=== PATIENT | female | born 1935 | race Caucasian/White ===

== ENCOUNTER → 2017-04-07 | Outpatient (CLI) | payer MEDICARE, MEDICAID ==
--- NOTE | 2017-04-07 13:06 | RADIOLOGY REPORT (SQ) ---
EXAM DESCRIPTION: RIBS LEFT W/PA CHEST COMPLETED DATE/TIME: 04/07/2017 12:36 pm REASON FOR STUDY: RIB PAIN ON LEFT SIDE R07.81 PLEURODYNIA M54.5 LOW BACK PAIN COMPARISON: Two-view chest 12/04/2010 Lumbar spine films same date TECHNIQUE: Frontal view of the chest and additional views of the left ribs acquired. NUMBER OF VIEWS: PA chest Left rib detail films two views LIMITATIONS: None. FINDINGS: FRONTAL CXR: Distorted by the patient's thoracic kyphosis. There is a large retrocardiac hiatal hernia containing the majority of the stomach. This has an air-fluid level. Lungs are grossly clear. No pleural effusions. No pneumothorax. Mild cardiomegaly. RIBS: Osteoporotic. There is buckling of the 5th 6th and 7th left lateral ribs worrisome for acute o r subacute fractures. OTHER: No other significant finding. IMPRESSION: No acute infiltrates. Large retrocardiac hiatal hernia containing the majority of the stomach. Air-fluid level is present in the stomach. Buckling of the bony cortex left lateral 5th 6th and 7th ribs worrisome for acute or subacute fractur es COMMENT: SITE OF TRAUMA/COMPLAINT MARKED/STAMP COMPLETED: No TECHNICAL DOCUMENTATION: JOB ID: [id number] [employer]- All Rights Reserved
--- NOTE | 2017-04-07 13:10 | RADIOLOGY REPORT (SQ) ---
EXAM DESCRIPTION: L SPINE 2 VIEWS COMPLETED DATE/TIME: 04/07/2017 12:36 pm REASON FOR STUDY: LUMBAGO R07.81 PLEURODYNIA M54.5 LOW BACK PAIN COMPARISON: Chest films 12/04/2010 Lumbar spine films 12/03/2013 NUMBER OF VIEWS: Two views. TECHNIQUE: AP and lateral radiographic images acquired of the lumbar spine. LIMITATIONS: Bones are osteoporotic. Thoracic kyphosis. Limited visualization of the lumbar spine on the frontal film FINDINGS: MINERALIZATION: Osteoporotic SEGMENTATION: Normal. No transitional anatomy. ALIGNMENT: Very accentuated thoracolumbar kyphosis, almost 90 VERTEBRAE: Multiple biconcave compression deformities with 25 to 50% loss of height at T7, T8, T9 and T10. 50% loss of height at T11, 75% loss of height at T12. Vertebra plana at L1. The lower thoracic compression deformities appear new compared to prior films from 12/03/2013 and 011. Mid L1 vertebra plana deformity is stable compared to 12/03/2013. DISCS: Preserved height. No significant osteophytes or end plate irregularity. POSTERIOR ELEMENTS: Not well seen HARDWARE: None in the spine. PARASPINAL SOFT TISSUES: Normal. PELVIS: Not well seen OTHER: No other significant finding. IMPRESSION: Multiple lower thoracic compression deformities with thoracolumbar kyphosis Stable L1 vertebra plana deformity compared 12/03/2013 TECHNICAL DOCUMENTATION: JOB ID: [id number] [employer]- All Rights Reserved
== END ==
LOC: RAD 12:03
PROVIDERS: ATTEND Physician Assistant
DX: R07.81 Pleurodynia (principal); M54.5 Low back pain
CPT/HCPCS: 72100

== ENCOUNTER 2017-06-04 08:34 | Day surgery (SDC) | payer MEDICARE, MEDICAID ==
[~2017-06-04 08:34] MED LIST: CHONDR SU A NA/HYALUR INTRAOC KIT (SURGICARE) ONE; EPINEPHRINE INJ/PF 1 MG/1 ML AMPULE ONE; KETOROLAC TROMETHAMINE 0.45% 4 DROP/0.4 ML DROPERETTE OS PRN; LIDOCAINE 1% INJ-PF (10 MG/ML) 30 ML SDV ONE; TOBRAMYCIN SULFATE/DEXAMETH OPH OINTMENT 3.5 GM ONE
[2017-06-04] MEDS: CYCLOPENTOLATE 0.2%/PHENYLEPHRINE 1% OPH SOLN 2 ML OS PRN ×3 (09:15→09:45)
[2017-06-04] MEDS: TETRACAINE HCL 0.5% OPH SOLN 0.6 ML DROPERETTE OS PRN ×3 (09:15→09:56)
[2017-06-04] MEDS: TROPICAMIDE 1% OPH SOLN 3 ML OS PRN ×3 (09:16→09:45)
[2017-06-04] MEDS: BESIFLOXACIN HCL 0.6% OPH SUSP 5 ML BOTTLE OS PRN ×3 (09:17→10:33)
[2017-06-04] MEDS ORDERED: MIDAZOLAM 2 MG/2 ML INJ ONE ×2 (09:44)
== END 2017-06-04 11:15 | disposition home or self-care (01) ==
LOC: SC 08:34
PROVIDERS: ATTEND Ophthalmology
PROC: 08RK3JZ Replacement of Left Lens with Synthetic Substitute, Percutaneous Approach (ICD-10-PCS; principal; 2017-06-04 09:45)
DX: H25.12 Age-related nuclear cataract, left eye (principal); I10 Essential (primary) hypertension
CPT/HCPCS: 66984; V2630; J2250; J3490 ×3; A9270; J0171; 142

== ENCOUNTER 2017-06-18 09:31 | Day surgery (SDC) | payer MEDICARE, MEDICAID ==
[~2017-06-18 09:31] MED LIST changes: -CHONDR SU A NA/HYALUR INTRAOC KIT (SURGICARE) ONE; -EPINEPHRINE INJ/PF 1 MG/1 ML AMPULE ONE; +KETOROLAC TROMETHAMINE 0.45% 4 DROP/0.4 ML DROPERETTE OD PRN; -KETOROLAC TROMETHAMINE 0.45% 4 DROP/0.4 ML DROPERETTE OS PRN; -LIDOCAINE 1% INJ-PF (10 MG/ML) 30 ML SDV ONE; +MIDAZOLAM 2 MG/2 ML INJ ONE; -TOBRAMYCIN SULFATE/DEXAMETH OPH OINTMENT 3.5 GM ONE
[2017-06-18] MEDS ORDERED: EPINEPHRINE INJ/PF 1 MG/1 ML AMPULE ONE (09:39)
[2017-06-18] MEDS ORDERED: LIDOCAINE 1% INJ-PF (10 MG/ML) 30 ML SDV ONE (09:40)
[2017-06-18] MEDS ORDERED: CHONDR SU A NA/HYALUR INTRAOC KIT (SURGICARE) ONE (09:40)
[2017-06-18] MEDS: TETRACAINE HCL 0.5% OPH SOLN 0.6 ML DROPERETTE OD PRN ×3 (10:31→11:02)
[2017-06-18] MEDS: TROPICAMIDE 1% OPH SOLN 3 ML OD PRN ×3 (10:32→10:52)
[2017-06-18] MEDS: CYCLOPENTOLATE 0.2%/PHENYLEPHRINE 1% OPH SOLN 2 ML OD PRN ×3 (10:32→10:52)
[2017-06-18] MEDS: BESIFLOXACIN HCL 0.6% OPH SUSP 5 ML BOTTLE OD PRN ×4 (10:33→11:24)
[2017-06-18] MEDS: TOBRAMYCIN SULFATE/DEXAMETH OPH OINTMENT 3.5 GM ONE ×2 (11:22→11:24)
== END 2017-06-18 12:12 | disposition home or self-care (01) ==
LOC: SC 09:31
PROVIDERS: ATTEND Ophthalmology
PROC: 08RJ3JZ Replacement of Right Lens with Synthetic Substitute, Percutaneous Approach (ICD-10-PCS; principal; 2017-06-18 10:45)
DX: H25.11 Age-related nuclear cataract, right eye (principal); Z98.42 Cataract extraction status, left eye
CPT/HCPCS: 66984; V2630; J2250; J3490 ×3; A9270; J0171; 142

== ENCOUNTER 2018-06-07 06:28 | Emergency (ER) | payer MEDICARE, MEDICAID ==
[2018-06-07 08:13] LABS: ABSOLUTE BASOPHILS # (AUTO) 0.1 10^3/uL (0.0-0.2); ABSOLUTE EOSINOPHILS # (AUTO) 0.1 10^3/uL (0.0-0.6); ABSOLUTE LYMPHOCYTES (AUTO) 0.7 10^3/uL (0.5-4.7); ABSOLUTE MONOCYTES (AUTO) 0.4 10^3/uL (0.1-1.4); ABSOLUTE NEUT (AUTO) 6.4 10^3/uL (1.7-8.2); BASOPHILS % (AUTO) 0.8 % (0-2); EOSINOPHILS % (AUTO) 0.8 % (0-6); HEMATOCRIT 39.6 % (36.0-47.0); HEMOGLOBIN 13.2 g/dL (12.0-15.5); MEAN CORPUSCULAR HEMOGLOBIN 27.5 pg (27.0-33.4); MEAN CORPUSCULAR HGB CONC 33.5 g/dL (32.0-36.0); MEAN CORPUSCULAR VOLUME 82 fl (80-97); PLATELET COUNT 301 10^3/uL (150-450); RED BLOOD COUNT 4.82 10^6/uL (3.72-5.28); RED CELL DISTRIBUTION WIDTH 14.5 % (11.5-14.0); SEGMENTED NEUTROPHILS % (AUTO) 84.4 % (42-78); TOTAL CELLS COUNTED % (AUTO) 100 %; WHITE BLOOD COUNT 7.6 10^3/uL (4.0-10.5)
[2018-06-07 08:23] LABS: A TYPE INFLUENZA AG NEGATIVE (NEGATIVE)
[2018-06-07 08:24] LABS: B INFLUENZA AG NEGATIVE (NEGATIVE)
[2018-06-07 08:36] LABS: ALANINE AMINOTRANSFERASE < 6 U/L (9-52); ALBUMIN 3.6 g/dL (3.5-5.0); ALKALINE PHOSPHATASE 85 U/L (38-126); ANION GAP 10 (5-19); ASPARTATE AMINO TRANSFERASE 23 U/L (14-36); BILIRUBIN,DIRECT 0.2 mg/dL (0.0-0.4); BILIRUBIN,TOTAL 0.5 mg/dL (0.2-1.3); BLOOD UREA NITROGEN 12 mg/dL (7-20); CALCIUM 8.6 mg/dL (8.4-10.2); CARBON DIOXIDE 32 mmol/L (22-30); CHLORIDE 102 mmol/L (98-107); GLUCOSE 97 mg/dL (75-110); POTASSIUM 3.7 mmol/L (3.6-5.0); SODIUM 143.8 mmol/L (137-145); TOTAL PROTEIN 7.1 g/dL (6.3-8.2)
--- NOTE | 2018-06-07 09:00 | RADIOLOGY REPORT (SQ) ---
EXAM DESCRIPTION: CHEST 2 VIEWS COMPLETED DATE/TIME: 06/07/2018 8:18 am REASON FOR STUDY: SOB COMPARISON: Remote study from 2010. TECHNIQUE: Frontal and lateral radiographic views of the chest acquired. NUMBER OF VIEWS: Two view. LIMITATIONS: None. FINDINGS: LUNGS AND PLEURA: Low lung volumes. Relatively clear allowing for this. MEDIASTINUM AND HILAR STRUCTURES: Gas and fluid levels along the lower mediastinum and lower left hem ithorax. Consistent with a large hiatal hernia. This looks chronic but may be larger. HEART AND VASCULAR STRUCTURES: Obscured by hernia. Probably normal. No evidence of congestive failu re. BONES: Severe osteopenia. Numerous compression fractures at the thoracolumbar junction with associat ed pronounced kyphosis. HARDWARE: None in the chest. OTHER: No other significant finding. IMPRESSION: 1. No definite lung infiltrates. 2. This is allowing for severe kyphosis and large hiatal hernia, both of which limit evaluation. TECHNICAL DOCUMENTATION: JOB ID: [id number] [employer]- All Rights Reserved Reading location - IP/workstation name: [email or web address]
[2018-06-07 11:02] VITALS: BP 124/81
--- NOTE | 2018-06-07 11:31 | ER Document Report ---
ED General - General Chief Complaint: Breathing Difficulty Stated Complaint: DIFFICULTY BREATHING Time Seen by Provider: 06/07/18 07:11 Primary Care Provider: SENIA QUIROZ MD [Primary Care Provider] - Follow up as needed Notes: Patient is an 83-year-old female presents to the emergency department for generalized side of pain, cough, congestion, generalized difficulty breathing for the last 3 days. Patient denies any fever, vomiting, diarrhea, chest pain, abdominal pain, any other symptoms. Patient states she does live at home with her daughter. States she is not that steady on her feet and typically walks with assistance from her daughter or with help from holding onto objects in her house. Patient does have a rash below her right lip. Patient states she has "chin hairs" that she asks her daughter to tweeze. States she feels as though 1 of them has gotten infected. Patient is actively picking at wound. Past medical history: Patient denies any. States she does not like doctors but feels as though the last time she was at her primary care provider was within the year. Patient's son is also in the room who agrees with that statement Medications: None Allergies: None TRAVEL OUTSIDE OF THE [place] IN LAST 30 DAYS: No - Related Data Allergies/Adverse Reactions: No Known Allergies Allergy (Verified 06/04/17 09:02) Past Medical History - General Information source: Patient, Relative - Social History Smoking Status: Unknown if Ever Smoked Family History: Reviewed & Not Pertinent - Past Medical History Cardiac Medical History: Reports: Hx Hypertension - non medicated. refuses medication per patient Denies: Hx Heart Attack Pulmonary Medical History: Denies: Hx Asthma Neurological Medical History: Denies: Hx Cerebrovascular Accident, Hx Seizures GI Medical History: Denies: Hx Hepatitis, Hx Hiatal Hernia, Hx Ulcer Infectious Medical History: Denies: Hx Hepatitis Past Surgical History: Denies: Hx Hysterectomy, Hx Mastectomy, Hx Open Heart Surgery, Hx Pacemaker - Immunizations Hx Diphtheria, Pertussis, Tetanus Vaccination: Yes Review of Systems - Review of Systems Constitutional: See HPI Cardiovascular: See HPI Respiratory: See HPI Gastrointestinal: No symptoms reported Genitourinary: denies: Burning, Dysuria Female Genitourinary: No symptoms reported Musculoskeletal: No symptoms reported Skin: See HPI Hematologic/Lymphatic: No symptoms reported Neurological/Psychological: See HPI Physical Exam - Vital signs Vitals: Temp Pulse Resp BP Pulse Ox 97.7 F 92 18 147/86 H 97 06/07/18 06:40 06/07/18 06:40 06/07/18 06:40 06/07/18 06:40 06/07/18 06:40 - Notes Notes: GENERAL: Alert, interacts well. No acute distress. HEAD: Normocephalic, atraumatic. EYES: Pupils equal, round, and reactive to light. Extraocular movements intact. ENT: Oral mucosa moist, tongue midline. Nares patent, TM's intact, nonerythematous, nonbulging bilaterally. Pharynx within normal limits no palatal petechiae noted. NECK: Full range of motion. Supple. Trachea midline. LUNGS: Clear to auscultation bilaterally, no wheezes, rales, or rhonchi. No respiratory distress. HEART: Regular rate and rhythm. No murmur ABDOMEN: Soft, non-tender. Non-distended. Bowel sounds present in all 4 quadrants. EXTREMITIES: Moves all 4 extremities spontaneously. No edema, normal radial and dorsalis pedis pulses bilaterally. No cyanosis. BACK: no cervical, thoracic, lumbar midline tenderness. No saddle anesthesia, normal distal neurovascular exam. Severe kyphosis noted NEUROLOGICAL: Alert and oriented x3. Normal speech. [cranial nerves II through XII grossly intact]. PSYCH: Normal affect, normal mood. SKIN: Warm, dry, normal turgor. Patient does have a honey crusted erythematous lesion noted below her right lip measuring 1 cm x 1 cm. Course - Re-evaluation Re-evalutation: 06/07/18 11:32 Patient's labs reveal no signs of leukocytosis, no signs of anemia, no signs of electrolyte abnormalities. Patient's influenza testing was negative. Patient's chest x-ray reveals no signs of pneumonia, pneumothorax, rib fracture. Patient continues to be nontachypneic, oxygen saturation stable and is currently requesting discharge. Discussed getting a urine sample. Patient states she does not have to urinate and wishes to be discharged at this time. States she overall feels a lot better and does not want to give a urine sample. Discussed due to her age she should follow-up with a primary care provider for continued care. We will provide that in her discharge paperwork. Patient stable for discharge. Patient's son in the room with her also agreeing with plan. Patient continues to be conscious alert and oriented x4 in no distress. Continues to deny chest pain and is currently denying any respiratory distress. - Vital Signs Vital signs: Temp Pulse Resp BP Pulse Ox 98.1 F 100 14 124/81 98 06/07/18 10:31 06/07/18 10:31 06/07/18 10:31 06/07/18 10:31 06/07/18 11:11 - Laboratory Result Diagrams: 06/07/18 07:45 06/07/18 07:45 Laboratory results interpreted by me: 06/07/18 06/07/18 07:45 07:45 RDW 14.5 H Seg Neutrophils % 84.4 H Lymphocytes % 9.0 L Carbon Dioxide 32 H ALT < 6 L Discharge - Discharge Clinical Impression: Dyspnea Qualifiers: Dyspnea type: unspecified Qualified Code(s): R06.00 - Dyspnea, unspecified Condition: Stable Disposition: HOME, SELF-CARE Instructions: Dyspnea, Nonspecific ([facility]) Additional Instructions: As we discussed you have been seen and treated in the emergency department for your respiratory distress. You should follow-up with the primary care provider in the next 12-24 hours. You should also return to the emergency room should you have any other concerning symptoms. Referrals: SENIA QUIROZ MD [Primary Care Provider] - Follow up as needed [facility] [Provider Group] - Follow up as needed CHICA GARCÍA MD [ACTIVE STAFF] - Follow up as needed
--- NOTE | 2018-06-08 00:05 | EKG REPORT ---
SEVERITY:- BORDERLINE ECG - SINUS TACHYCARDIA VENTRICULAR PREMATURE COMPLEX LOW VOLTAGE IN FRONTAL LEADS : Confirmed by: Dieter Ely 08-Jun-2018 00:04:44
== END 2018-06-07 11:42 | disposition home or self-care (01) ==
LOC: ER 06:28
DX: R06.00 Dyspnea, unspecified (principal); M40.205 Unspecified kyphosis, thoracolumbar region; R05 Cough; R26.81 Unsteadiness on feet; R21 Rash and other nonspecific skin eruption; I10 Essential (primary) hypertension
CPT/HCPCS: 36415; 71046; 80053; 85025; 87804; 93005; 93010; 99284

== ENCOUNTER 2019-06-09 05:46 | Emergency (ER) | payer MEDICARE, MEDICAID ==
--- NOTE | 2019-06-09 06:53 | RADIOLOGY REPORT (SQ) ---
EXAM DESCRIPTION: XR SHOULDER 2 OR MORE VIEWS COMPLETED DATE/TME: 06/09/2019 05:59 CLINICAL HISTORY: 84 years Female, fall, bone tenderness COMPARISON: None. Findings: Bones, joints, and soft tissues of the LEFT XR SHOULDER 3 VIEWS appear intact. Low lung volume. Mild osteoarthritis. Elevated left hemidiaphragm. IMPRESSION: No acute findings.
--- NOTE | 2019-06-09 10:25 | ER Document Report ---
ED Fall - General Chief Complaint: Fall Stated Complaint: FALL Time Seen by Provider: 06/09/19 09:39 Mode of Arrival: Medic Information source: Patient TRAVEL OUTSIDE OF THE [place] IN LAST 30 DAYS: No - HPI Notes: Patient is brought in by ambulance after a fall. Daughter is in the room. Daughter states that she lives with her mother. She states that about 5 years ago her mom had a fall and ever since she has had some balance issues. She states that she has frequent falls. She states she does not normally complain of pain after falling however. She states that today she had 3 falls and was complaining of shoulder pain so she brought the patient to the emergency department. She states that her mom has not seen a doctor in approximately 1 year. Patient complains of the head pain neck pain shoulder pain and low back pain. These pains are constant. They are worse with movement and better with rest. They do radiate outward. They are sharp pains. They appear to be mild to moderate in intensity. - Related data Allergies/Adverse Reactions: No Known Allergies Allergy (Verified 06/09/19 06:54) Home Medications: Patient is unsure Past Medical History - General Information source: Patient - Social History Smoking Status: Never Smoker Frequency of alcohol use: None Drug Abuse: None Family History: Reviewed & Not Pertinent Patient has suicidal ideation: No Patient has homicidal ideation: No - Past Medical History Cardiac Medical History: Reports: Hx Hypertension - non medicated. refuses medication per patient Denies: Hx Heart Attack Pulmonary Medical History: Denies: Hx Asthma Neurological Medical History: Denies: Hx Cerebrovascular Accident, Hx Seizures GI Medical History: Denies: Hx Hepatitis, Hx Hiatal Hernia, Hx Ulcer Infectious Medical History: Denies: Hx Hepatitis Past Surgical History: Denies: Hx Hysterectomy, Hx Mastectomy, Hx Open Heart Surgery, Hx Pacemaker - Immunizations Hx Diphtheria, Pertussis, Tetanus Vaccination: Yes Review of Systems - Review of Systems Constitutional: denies: Chills, Fever Cardiovascular: denies: Chest pain, Palpitations Respiratory: Short of breath - Patient states she is chronically short of breath.. denies: Cough -: Yes All other systems reviewed and negative Physical Exam - Vital signs Vitals: Temp Pulse Ox 98.1 F 90 L 06/09/19 05:56 06/09/19 05:56 Interpretation: Normal - General General appearance: Alert, Other - Patient looks malnourished cachectic In distress: None - HEENT Head: Normocephalic, Other - Patient has an abrasion on the chin Eyes: Normal Pupils: PERRL Neck: Other - Patient has diffuse C-spine tenderness to palpation. However no step-offs or deformities are appreciated. - Respiratory Respiratory status: No respiratory distress Chest status: Nontender Breath sounds: Normal Chest palpation: Normal - Cardiovascular Rhythm: Regular Heart sounds: Normal auscultation Murmur: No - Abdominal Inspection: Normal Distension: No distension Bowel sounds: Normal Tenderness: Nontender Organomegaly: No organomegaly - Back Back: Normal, Tender - Patient has lumbar tenderness to palpation. - Extremities General upper extremity: Normal inspection, Tender - Left shoulder and elbow are tender to palpation, Normal color, Normal temperature General lower extremity: Normal inspection, Nontender, Normal color, Normal ROM, Normal temperature. No: Suleiman's sign - Neurological Neuro grossly intact: Yes Cognition: Confused Orientation: Disoriented to time Paul Coma Scale Eye Opening: Spontaneous Paul Coma Scale Verbal: Confused Paul Coma Scale Motor: Obeys Commands [place] Coma Scale Total: 14 Speech: Normal Motor strength normal: LUE, RUE, LLE, RLE Sensory: Normal - Psychological Associated symptoms: Normal affect, Normal mood - Skin Skin Temperature: Warm Skin Moisture: Dry Skin Color: Normal Course - Re-evaluation Re-evalutation: 06/09/19 16:43 Patient presents with some shoulder pain and weakness with frequent falls. Laboratories are essentially unremarkable. I did try to ambulate patient but she did not feel comfortable standing. Patient did not have an admittable diagnosis for the hospital. I did have case work and hospice evaluate the patient. They are going to do a home visit and evaluate for possible hospice placement. I do feel this is the best option I have available at this time. Patient and daughter are in agreement with this. I do not find any further acute issues that need addressed today. - Vital Signs Vital signs: Temp Pulse Resp BP Pulse Ox 98.3 F 111/72 94 06/09/19 15:49 06/09/19 14:01 06/09/19 14:01 - Laboratory Result Diagrams: 06/09/19 11:20 06/09/19 11:20 Laboratory results interpreted by me: 06/09/19 06/09/19 06/09/19 11:20 11:20 11:20 WBC 10.9 H RDW 14.4 H Seg Neuts % (Manual) 90 H Lymphocytes % (Manual) 5 L Abs Neuts (Manual) 9.8 H ABG pH 7.47 H ABG pO2 58.9 L ABG HCO3 29.7 H ABG Total CO2 31.0 H ABG O2 Saturation 91.9 L Carbon Dioxide 31 H Albumin 3.3 L Urine Protein Urine Ketones Urine Blood Urine Urobilinogen Leukocyte Esterase Rfl 06/09/19 11:47 WBC RDW Seg Neuts % (Manual) Lymphocytes % (Manual) Abs Neuts (Manual) ABG pH ABG pO2 ABG HCO3 ABG Total CO2 ABG O2 Saturation Carbon Dioxide Albumin Urine Protein 30 H Urine Ketones 20 H Urine Blood SMALL H Urine Urobilinogen 2.0 H Leukocyte Esterase Rfl TRACE H - Diagnostic Test Radiology reviewed: Image reviewed, Reports reviewed - EKG Interpretation by [place] EKG shows normal: Sinus rhythm Rate: Tachycardia - 116 [place]/QRS: Left axis deviation Discharge - Discharge Clinical Impression: Frequent falls Contusion of left shoulder Qualifiers: Encounter type: initial encounter Qualified Code(s): S40.012A - Contusion of left shoulder, initial encounter Failure to thrive Qualifiers: Failure to thrive age range: in adult Qualified Code(s): R62.7 - Adult failure to thrive Condition: Stable Disposition: HOME, SELF-CARE Additional Instructions: Please follow-up at [facility] as soon as possible Referrals: [facility] [Provider Group] - Follow up in 3-5 days
--- NOTE | 2019-06-09 10:57 | RADIOLOGY REPORT (SQ) ---
EXAM DESCRIPTION: L SPINE 2 VIEWS COMPLETED DATE/TIME: 06/09/2019 10:38 am REASON FOR STUDY: fall/pain COMPARISON: 04/07/2017 NUMBER OF VIEWS: Two views. TECHNIQUE: AP and lateral radiographic images acquired of the lumbar spine. LIMITATIONS: Limited visualization secondary to decreased osseous mineralization and overlying bowel gas. FINDINGS: MINERALIZATION: Decreased. SEGMENTATION: Normal. No transitional anatomy. ALIGNMENT: Normal. VERTEBRAE: Chronic T11, T12 and L1 compression deformities with over 50% height loss. . No definite fracture although evaluation severely limited. Exaggerated lumbar lordosis and thoracic kyphosis. DISCS: Multilevel spondylosis with mild lower lumbar disc height loss. POSTERIOR ELEMENTS: Pedicles and facets are intact. No pars defect or posterior arch defects. Lower lumbar facet arthropathy. HARDWARE: None in the spine. PARASPINAL SOFT TISSUES: Normal. PELVIS: Intact as visualized. No fractures or worrisome bone lesions. SI joints intact. OTHER: No other significant finding. IMPRESSION: 1. No definite acute bony abnormality although evaluation severely limited secondary to overlying bowel gas and decreased osseous mineralization. If high clinical concern consider CT or M RI. 2. Chronic T11, T12 and L1 compression deformities with greater than 50% anterior height loss. TECHNICAL DOCUMENTATION: JOB ID: [id number] 2010 [employer]- All Rights Reserved Reading location - IP/workstation name: [email or web address]
--- NOTE | 2019-06-09 11:12 | RADIOLOGY REPORT (SQ) ---
EXAM DESCRIPTION: CT HEAD WITHOUT COMPLETED DATE/TIME: 06/09/2019 10:33 am REASON FOR STUDY: fall/pain COMPARISON: 10/13/2011 TECHNIQUE: Axial images acquired through the brain without intravenous contrast. Images reviewed wi th bone, brain and subdural windows. Additional sagittal and coronal reconstructions were generated. Images stored on PACS. All CT scanners at this facility use dose modulation, iterative reconstruction, and/or weight based d osing when appropriate to reduce radiation dose to as low as reasonably achievable (ALARA). [facility]: Dose Right [facility]: CareDose [facility]: Dose Right [facility]: Teradose 4D [facility]: [employer] RADIATION DOSE: CT Rad equipment meets quality standard of care and radiation dose reduction techniq ues were employed. CTDIvol: 53.2 mGy. DLP: 1017 mGy-cm. mGy. LIMITATIONS: None. FINDINGS: VENTRICLES: Prominent. CEREBRUM: No masses. No hemorrhage. No midline shift. Areas of low density in the white matter mos t likely due to chronic micro-vascular ischemic change. No evidence for acute infarction. CEREBELLUM: No masses. No hemorrhage. No alteration of density. No evidence for acute infarction. EXTRAAXIAL SPACES: Mild age-related involutional change. No fluid collections. No masses. ORBITS AND GLOBE: No intra- or extraconal masses. Normal contour of globe without masses. CALVARIUM: No fracture. Degenerative changes at the temporomandibular joints bilaterally. Stable sc attered lucent lesions along the inner table of the calvarium, likely venous lakes. PARANASAL SINUSES: No fluid or mucosal thickening. SOFT TISSUES: No mass or hematoma. OTHER: No other significant finding. IMPRESSION: MILD CHRONIC CHANGES OF ATROPHY AND MICROVASCULAR ISCHEMIA. NO ACUTE PROCESS. EVIDENCE OF ACUTE STROKE: NO. TECHNICAL DOCUMENTATION: JOB ID: [id number] Quality ID # [id number]: Final reports with documentation of one or more dose reduction techniques (e.g., Au tomated exposure control, adjustment of the mA and/or kV according to patient size, use of iterative reconstruction technique) 2010 [employer]- All Rights Reserved Reading location - IP/workstation name: [email or web address]
--- NOTE | 2019-06-09 11:16 | RADIOLOGY REPORT (SQ) ---
EXAM DESCRIPTION: CT CERVICAL SPINE WITHOUT COMPLETED DATE/TIME: 06/09/2019 10:33 am REASON FOR STUDY: fall/pain COMPARISON: None. TECHNIQUE: Axial images acquired through the cervical spine without intravenous contrast. Images re viewed with lung, soft tissue and bone windows. Reconstructed coronal and sagittal MPR images review ed. Images stored on PACS. All CT scanners at this facility use dose modulation, iterative reconstruction, and/or weight based d osing when appropriate to reduce radiation dose to as low as reasonably achievable (ALARA). [facility]: Dose Right [facility]: CareDose [facility]: Dose Right [facility]: Teradose 4D [facility]: [employer] RADIATION DOSE: CT Rad equipment meets quality standard of care and radiation dose reduction techniq ues were employed. CTDIvol: 6.9 mGy. DLP: 119 mGy-cm. mGy. LIMITATIONS: None. FINDINGS: ALIGNMENT: Exaggerated cervical lordosis. MINERALIZATION: Normal. VERTEBRAL BODIES: No fractures or dislocation. DISCS: No significant disc disease. FACETS, LATERAL MASSES, POSTERIOR ELEMENTS: No facet fracture dislocation. Multilevel mild facet art hropathy, greatest at C3 through C5 on the left. No evidence of high-grade osseous neural foraminal narrowing HARDWARE: None in the spine. VISUALIZED RIBS: No fractures. LUNG APICES AND SOFT TISSUES: No significant or acute findings. OTHER: No other significant finding. IMPRESSION: Exaggerated cervical lordosis without other evidence of acute bony abnormality. Finding s likely related to degenerative/positional change although if high clinical concern for ligamentous injury consider TECHNICAL DOCUMENTATION: JOB ID: [id number] Quality ID # [id number]: Final reports with documentation of one or more dose reduction techniques (e.g., Au tomated exposure control, adjustment of the mA and/or kV according to patient size, use of iterative reconstruction technique) 2010 [employer]- All Rights Reserved Reading location - IP/workstation name: [email or web address]
[2019-06-09 11:36] LABS: ARTERIAL BLOOD BASE EXCESS 5.4 mmol/L; ARTERIAL BLOOD H2CO3 1.27 mmol/L (1.05-1.35); ARTERIAL BLOOD HCO3 29.7 mmol/L (20-24); ARTERIAL BLOOD O2 SATURATION 91.9 % (94-98); ARTERIAL BLOOD PCO2 42.1 mmHg (35-45); ARTERIAL BLOOD PH 7.47 (7.35-7.45); ARTERIAL BLOOD PO2 58.9 mmHg (80-100)
[2019-06-09 11:45] LABS: HEMATOCRIT 38.9 % (36.0-47.0); HEMOGLOBIN 13.3 g/dL (12.0-15.5); MEAN CORPUSCULAR HEMOGLOBIN 28.3 pg (27.0-33.4); MEAN CORPUSCULAR HGB CONC 34.2 g/dL (32.0-36.0); MEAN CORPUSCULAR VOLUME 83 fl (80-97); PLATELET COUNT 216 10^3/uL (150-450); RED BLOOD COUNT 4.71 10^6/uL (3.72-5.28); RED CELL DISTRIBUTION WIDTH 14.4 % (11.5-14.0); WHITE BLOOD COUNT 10.9 10^3/uL (4.0-10.5)
[2019-06-09 11:46] LABS: ARTERIAL BLOOD FIO2 98%
[2019-06-09 11:56] LABS: ALBUMIN 3.3 g/dL (3.5-5.0); ALKALINE PHOSPHATASE 73 U/L (38-126); ANION GAP 9 (5-19); ASPARTATE AMINO TRANSFERASE 29 U/L (14-36); BILIRUBIN,DIRECT 0.1 mg/dL (0.0-0.4); BILIRUBIN,TOTAL 0.9 mg/dL (0.2-1.3); BLOOD UREA NITROGEN 20 mg/dL (7-20); CALCIUM 8.6 mg/dL (8.4-10.2); CARBON DIOXIDE 31 mmol/L (22-30); CHLORIDE 100 mmol/L (98-107); GLUCOSE 89 mg/dL (75-110); POTASSIUM 3.7 mmol/L (3.6-5.0); TOTAL PROTEIN 6.6 g/dL (6.3-8.2)
[2019-06-09 12:02] LABS: APPEARANCE,URINE CLEAR; BILIRUBIN,URINE NEGATIVE (NEGATIVE); COLOR,URINE YELLOW; GLUCOSE, URINE NEGATIVE (NEGATIVE); KETONES,URINE 20 mg/dL (NEGATIVE); PROTEIN,URINE 30 mg/dL (NEGATIVE); URINE SPECIFIC GRAVITY 1.019
[2019-06-09 12:18] LABS: ABSOLUTE LYMPHOCYTES# (MANUAL) 0.5 10^3/uL (0.5-4.7); ABSOLUTE MONOCYTES # (MANUAL) 0.4 10^3/uL (0.1-1.4); BASOPHILS % (MANUAL) 1 % (0-2); EOSINOPHILS % (MANUAL) 0 % (0-6); LYMPHOCYTES % (MANUAL) 5 % (13-45); MONOCYTES % (MANUAL) 4 % (3-13); SEGMENTED NEUTROPHILS % (MAN) 90 % (42-78); TOTAL CELLS COUNTED 100
[2019-06-09 12:19] LABS: ANISOCYTOSIS SLIGHT; PLATELET COMMENT ADEQUATE
--- NOTE | 2019-06-09 14:15 | EKG REPORT ---
SEVERITY:- ABNORMAL ECG - SINUS TACHYCARDIA LEFT AXIS DEVIATION LOW VOLTAGE IN FRONTAL LEADS PROBABLE LEFT VENTRICULAR HYPERTROPHY CONSIDER ANTERIOR INFARCT : Confirmed by: Peter Garcia MD 09-Jun-2019 14:14:30
[2019-06-09] MEDS ORDERED: NORMAL SALINE 1000 ML 1,000 ML IV ONE ×2 (16:57)
[2019-06-09 17:56] LABS: ANION GAP 10 (5-19); BLOOD UREA NITROGEN 23 mg/dL (7-20); CALCIUM 7.8 mg/dL (8.4-10.2); CARBON DIOXIDE 28 mmol/L (22-30); CHLORIDE 102 mmol/L (98-107); GLUCOSE 96 mg/dL (75-110); POTASSIUM 3.6 mmol/L (3.6-5.0)
[2019-06-09 20:37] VITALS: BP 127/86
== END 2019-06-09 20:27 | disposition home or self-care (01) ==
LOC: ER 05:46
DX: S40.012A Contusion of left shoulder, initial encounter (principal); R62.7 Adult failure to thrive; R51 Headache; M54.2 Cervicalgia; M54.5 Low back pain; R53.1 Weakness; R06.02 Shortness of breath; W19.XXXA Unspecified fall, initial encounter; Z91.81 History of falling
CPT/HCPCS: 93005; 36415; 82803; 85025; 80053; 81001; 72100; 73030; 70450; 72125; 93010; J7030; 87086; 87088